=== PATIENT | female | born 1985 | race African-American/Black ===

== ENCOUNTER → 2019-10-31 15:37 | Outpatient (CLI) | payer OTHER, SELFPAY ==
--- NOTE | ~2019-10-31 | US_ITS ---
EXAMINATION: US OB transvaginal DATE: 10/31/2019 16:05 INDICATION: Gestational dating TECHNIQUE: Real-time transabdominal and transvaginal obstetric ultrasound. FINDINGS: No prior studies for comparison. The uterus measures 11.6 x 5.7 x 6.9 cm. There is an intrauterine gestational sac, with pole id entified. The crown rump length measures 0.76 cm, which correlates with a estimated gestational age of 6 weeks 5 days. heart tones are identified measuring 136 BPM. There is a uterine fibroid p osterior aspect of the fundus measuring 3.6 x 3.5 x 3.6 cm. The left ovary contains a 2 cm corpus lut eal cyst. Right ovary within normal limits. No free fluid in the pelvis. IMPRESSION: 1. SL IUP with an EGA of 6 weeks, 5 days (EDC by current ultrasound of 06/20/2020). 2: 3.6 cm uterine fibroid in the fundus. Reviewed, dictated and finalized at location A. IMPRESSION: 1. SL IUP with an EGA of 6 weeks, 5 days (EDC by current ultrasound of ). 2: 3.6 cm uterine fibroid in the fundus.
== END ==
PROVIDERS: Visit Provider Obstetrics & Gynecology
DX: O34.11 Maternal care for benign tumor of corpus uteri, first trimester (principal); Z3A.01 Less than 8 weeks gestation of pregnancy
CPT/HCPCS: 76817

== ENCOUNTER 2020-06-05 09:10 | Outpatient (RCR) | payer OTHER, MEDICAID, SELFPAY ==
[2020-04-28 09:55] VITALS: BP 109/65; PULSE 95
[2020-05-01 08:06] VITALS: BP 98/64
[2020-05-05 09:17] VITALS: BP 106/55; PULSE 85
[2020-05-08 08:16] VITALS: BP 118/59; PULSE 79
[2020-05-12 08:15] VITALS: BP 116/63; PULSE 92
[2020-05-15 08:26] VITALS: BP 116/72; PULSE 89
[2020-05-19 08:48] VITALS: BP 117/67; PULSE 82
[2020-05-22 11:40] VITALS: BP 119/59; PULSE 91
[2020-05-26 09:49] VITALS: BP 114/84; PULSE 91
[2020-06-02 11:08] VITALS: BP 126/69; PULSE 87
--- NOTE | ~2020-06-05 | US_ITS ---
EXAMINATION: US OB limited w BPP DATE: 06/02/2020 10:53 INDICATION: Variable decelerations, third trimester TECHNIQUE: Real-time pelvic ultrasound was performed. The interpreting radiologist was not present fo r the study. COMPARISON: 05/26/2020 FINDINGS: There is a single living fetus in vertex presentation. The placenta is fundal. heart rate is 14 4 beats per minute (bpm). The amniotic fluid index is 15 cm which is normal. Biophysical profile performed by the technologist: breathing (30 sec sustained breathing in 30 minutes): 2 out of 2 movement (3 gross body movements in 30 minutes): 2 out of 2 tone (one episode of ndxukux-dzmiosyfd-ssfuzbo limb movement): 2 out of 2 Amniotic fluid pocket (2 cm): 2 out of 2 Total score: 8 out of 8 IMPRESSION: 1. Single living fetus in vertex presentation. 2. Biophysical profile 8 out of 8. 3. Normal amniotic fluid index. Reviewed, dictated and finalized at location A. HICS EDIT TECHNICIAN
--- NOTE | ~2020-06-05 | US_ITS ---
EXAMINATION: US OB limited w BPP DATE: 05/26/2020 10:10 INDICATION: Variable decelerations. Third trimester. TECHNIQUE: Real-time pelvic ultrasound was performed. COMPARISON: Ultrasound 05/22/2020 FINDINGS: There is a single living fetus in vertex presentation. The placenta is fundal. heart rate is 1 39 beats per minute (bpm). The amniotic fluid index is 21.0 cm, which is normal. Biophysical profile performed by the technologist: breathing (30 sec sustained breathing in 30 minutes): 2 out of 2 movement (3 gross body movements in 30 minutes): 2 out of 2 tone (one episode of nxevruu-bnutxmies-ogumbak limb movement): 2 out of 2 Amniotic fluid pocket (2 cm): 2 out of 2 Total score: 8 out of 8 IMPRESSION: 1. Single living fetus in vertex presentation. 2. Biophysical profile 8 out of 8. Reviewed, dictated and finalized at location A. T SECURITY OFFICER
--- NOTE | ~2020-06-05 | US_ITS ---
EXAMINATION: US OB limited w BPP DATE: 05/22/2020 11:32 INDICATION: Decelerations. Gestational diabetes. Third trimester. TECHNIQUE: Real-time pelvic ultrasound was performed. COMPARISON: Ultrasound 05/05/2020 FINDINGS: There is a single living fetus in vertex presentation. The placenta is posterior and fundal. h eart rate is 168 beats per minute (bpm). The amniotic fluid index is 18.0 cm, which is normal. Biophysical profile performed by the technologist: breathing (30 sec sustained breathing in 30 minutes): 2 out of 2 movement (3 gross body movements in 30 minutes): 2 out of 2 tone (one episode of zelcxgt-luyzjwzmd-zztkxhn limb movement): 2 out of 2 Amniotic fluid pocket (2 cm): 2 out of 2 Total score: 8 out of 8 IMPRESSION: 1. Single living fetus in vertex presentation. 2. Biophysical profile 8 out of 8. Reviewed, dictated and finalized at location A. ECT SYSTEMS ENGINEER
--- NOTE | ~2020-06-05 | US_ITS ---
EXAMINATION: US OB limited w BPP DATE: 04/28/2020 09:46 EXECUTIVE DIRECTOR [employer] INDICATION: decelerations. Gestational diabetes. TECHNIQUE: Real-time transabdominal obstetric ultrasound. FINDINGS: Comparison ultrasound dated 10/31/2019 There is a single living fetus in vertex presentation. The placenta is fundal/posterior without plac enta previa. JONG is normal measuring 15.2 cm (normal range for gestational age is 8.6-24.2 cm). cardiac activity and movement is noted with a heart rate of 152 beats per minute. Biophysical profile: breathin of 2 movement: 2 of 2 tone: 2 of 2 Amniotic flud pocket: 2 of 2 Total score: 8 of 8 There is a uterine fibroid anteriorly measuring 3.4 x 3.3 x 2.4 cm. IMPRESSION: 1. Single living intrauterine in vertex presentation. 2: Total biophysical profile score of 8/8. 3: Normal JONG measures 15.2 cm. Reviewed, dictated and finalized at location A. UTIVE DIRECTOR [employer] MARKETING
--- NOTE | ~2020-06-05 | US_ITS ---
EXAMINATION: US OB limited w BPP DATE: 05/05/2020 09:06 INDICATION: Gestational diabetes, third trimester TECHNIQUE: Real-time pelvic ultrasound was performed. The interpreting radiologist was not present fo r the study. COMPARISON: 04/28/2020 FINDINGS: There is a single living fetus in vertex presentation. The placenta is fundal. heart rate is 15 7 beats per minute (bpm). The amniotic fluid index is 17.0 cm which is normal. Intramural fibroids ar e noted in the uterine body which measure up to 3.6 cm Biophysical profile performed by the technologist: breathing (30 sec sustained breathing in 30 minutes): 2 out of 2 movement (3 gross body movements in 30 minutes): 2 out of 2 tone (one episode of tgepoaq-xwbjnemqs-qusdvlh limb movement): 2 out of 2 Amniotic fluid pocket (2 cm): 2 out of 2 Total score: 8 out of 8 IMPRESSION: 1. Single living fetus in vertex presentation. 2. Biophysical profile 8 out of 8. 3. Normal amniotic fluid index. Reviewed, dictated and finalized at location A. GER OF REVENUE
[2020-06-05 09:36] VITALS: BP 126/77; PULSE 81
== END 2020-06-15 07:39 | disposition home or self-care (01) ==
LOC: ANHOBOP 09:10
PROVIDERS: PCP Family Medicine; Visit Provider Obstetrics & Gynecology
DX: O24.419 Gestational diabetes mellitus in pregnancy, unspecified control (principal); Z3A.32 32 weeks gestation of pregnancy; Z3A.33 33 weeks gestation of pregnancy; Z3A.34 34 weeks gestation of pregnancy; Z3A.35 35 weeks gestation of pregnancy; Z3A.36 36 weeks gestation of pregnancy; Z3A.37 37 weeks gestation of pregnancy
CPT/HCPCS: 59025; 76815; 76819

== ENCOUNTER 2020-06-13 06:12 | Inpatient (IN) | payer MEDICAID, SELFPAY ==
[2020-06-13] VITALS (110 sets, daily range): BP systolic 105–200; BP diastolic 47–132; PULSE 59–106; RESP 18; TEMP 36.2–37.3; O2SAT 96–100; BMI 36.6
[2020-06-13 06:48] LABS: Glucose Point of Care 150 (65-105)
[2020-06-13 07:00] LABS: Basophils Percent Auto 0.2 % (0.2-1.2); Eosinophils Percent Auto 0.6 % (0-4.4); Hematocrit 30.8 % (37.0-47.0); Immature Granulocyte Absolute 0.03 K/mm3 (0.00-0.031); Immature Granulocyte Percent A 0.5 % (0-0.5); Lymphocytes Absolute Auto 2.38 K/mm3 (0.9-3.2); Lymphocytes Percent Auto 38.1 % (18.3-44.2); Mean Corpuscular HGB Conc 32.5 g/dl (32-36); Mean Corpuscular Hemoglobin 28.3 pg (26-34); Mean Corpuscular Volume 87.3 fl (80-100); Mean Platelet Volume 10.7 fl (7.4-10.4); Monocytes Absolute Auto 0.4 K/mm3 (0.1-0.6); Monocytes Percent Auto 6.4 % (2.6-8.5); Neutrophils Absolute Auto 3.4 K/mm3 (1.3-6.7); Neutrophils Percent Auto 54.2 % (45.5-73.1); Platelet Count Result 225 k/mm3 (150-375); Red Blood Count 3.53 M/mm3 (4.2-5.4); Red Cell Distribution Width 14.4 % (11.5-14.5); White Blood Count 6.2 K/mm3 (4.5-10.0)
[2020-06-13] MEDS: LACTATED RINGERS 1,000 ML 125 ML IV CONT ×3 (07:04→11:32)
--- NOTE | 2020-06-13 07:10 | LDADM ---
This patient, Guilherme Nice, was admitted to Labor/Delivery/Recovery 106 on 06/13/20 at 06:12. Plans for labor, pain management and were discussed with patient. Patient/family oriented to hospital policies and general routines including ID bracelet, bed and alarms, visiting hours, pain management, procedures, bathroom and other care routines, personal items, smoking policy, room service/diet and guest tray routines, infant security routines, and visiting hours. Patient/Family are encouraged to report perceived risks to care and to ask questions if they do not understand what they are told or what they should do. See OBIX for further documentation.
[2020-06-13] MEDS: OXYTOCIN 30 UNITS/NS 500 ML 30 UNITS/500 ML BAG IV CONT (07:50)
--- NOTE | 2020-06-13 09:15 | WPDANESEPP ---
Anes - Eval Pre Procedure Procedure: labor epidural Date/Time: 06/13/20 09:15 Preop Diagnosis: labor pain Pre Op Diagnosis: Induction of Labor Patient Data Age: 34 Gender: F Height: 5 ft Weight: 85 kg Last Vital Signs Temp 36.5 C 06/13/20 07:00 Pulse 64 06/13/20 09:01 BP 136/77 06/13/20 09:01 Allergies Allergy/AdvReac Type Severity Reaction Status Date / Time No Known Allergies Allergy Verified 05/20/20 12:28 Home Medications Medication Instructions Recorded Confirmed Type PNV cmb#95-ferrous fumarate-FA 1 tablet PO DAILY 05/20/20 06/13/20 History [] ergocalciferol (vitamin D2) 50,000 unit PO 2XW 06/02/20 06/13/20 History insulin NPH isoph U-100 human 8 unit SUBCUT HS 06/02/20 06/13/20 History [Novolin N NPH U-100 Insulin] Laboratory Tests 06/13/20 06/13/20 06/13/20 06:42 06:51 06:51 WBC 6.2 K/mm3 K/mm3 (4.5-10.0) RBC 3.53 M/mm3 L M/mm3 (4.2-5.4) Hgb 10.0 g/dL L g/dL (12.0-15.0) Hct 30.8 % L % (37.0-47.0) MCV 87.3 fl fl (80-100) MCH 28.3 pg pg (26-34) MCHC 32.5 g/dl g/dl (32-36) RDW 14.4 % % (11.5-14.5) Plt Count 225 k/mm3 k/mm3 (150-375) MPV 10.7 fl H fl (7.4-10.4) Immature Gran % (Auto) 0.5 % % (0-0.5) Neut % (Auto) 54.2 % % (45.5-73.1) Lymph % (Auto) 38.1 % % (18.3-44.2) Sheridan % (Auto) 6.4 % % (2.6-8.5) Eos % (Auto) 0.6 % % (0-4.4) Baso % (Auto) 0.2 % % (0.2-1.2) Lymph # (Auto) 2.38 K/mm3 K/mm3 (0.9-3.2) Sheridan # (Auto) 0.4 K/mm3 K/mm3 (0.1-0.6) Eos # (Auto) 0.0 K/mm3 K/mm3 (0-0.3) Baso # (Auto) 0.0 K/mm3 K/mm3 (0.0-0.1) Abs Immat Gran (auto) 0.03 K/mm3 K/mm3 (0.00-0.031) Absolute Neuts (auto) 3.4 K/mm3 K/mm3 (1.3-6.7) Absolute Nucleated RBC 0.0 K/mm3 K/mm3 (0.0-0.012) Nucleated RBC % 0.0 % % (0.0-0.2) POC Capillary Glucose 150 mg/dl H mg/dl (65-105) RPR Pending Blood Type Antibody Screen 06/13/20 06:51 WBC RBC Hgb Hct MCV MCH MCHC RDW Plt Count MPV Immature Gran % (Auto) Neut % (Auto) Lymph % (Auto) Sheridan % (Auto) Eos % (Auto) Baso % (Auto) Lymph # (Auto) Sheridan # (Auto) Eos # (Auto) Baso # (Auto) Abs Immat Gran (auto) Absolute Neuts (auto) Absolute Nucleated RBC Nucleated RBC % POC Capillary Glucose RPR Blood Type O Positive Antibody Screen Negative Patient hx anesthesia problems: none Family hx anesthesia problems: none PMFSH Family History Family History Other No pertinent family history Social History Social History Smoking status: Never smoker Substance use: never Gender identity (if verbalized by the patient): Female Spiritual care concerns: No Exam Day of Procedure 06/13/20 09:15
--- NOTE | 2020-06-13 11:03 | WPDOBADMIT ---
Obstetrics - Admit Note Admission Note: AROM clear fluid /-2 vertex record reviewed. No pertinent additions to the history and/or any subsequent changes in the physical findings that are not consistent with the expected course of the were found. Additions to the history and/or subsequent changes in the physical findings follow. None.
[2020-06-13 11:13] LABS: Glucose Point of Care 85 (65-105)
[2020-06-13 13:46] LABS: Glucose Point of Care 78 (65-105)
[2020-06-13] MEDS: ONDANSETRON INJ 4 MG/2 ML VIAL IV PUSH (14:12)
[2020-06-13] MEDS: OXYTOCIN 30 UNITS/NS 500 ML 30 UNITS/500 ML BAG 125 UNITS IV CONT (15:58)
--- NOTE | 2020-06-13 16:03 | PM.OBPRVD ---
OB - Delivery Note Procedure Delivery date: 06/13/20 Procedure: events: Labor Induction Intrapartal events: Diabetes Induction method: AROM and per pitocin protocol Delivery monitor: external FHT, external uterine and internal FHT Route of delivery: Laceration Description: Perineal - 2nd Degree Delivery repair: vicryl Specimen: No Quantitative Blood Loss (ml): 130 Anesthesia type: Epidural Disposition: floor Baby Time of : 15:39 Weeks of gestation at delivery: 39 Infant gender: Male Weight (pounds): 8 Weight (ounces): 0 presentation: vertex position: Left Occiput Anterior Placenta delivery description: Spontaneous cord vessel description: 3 Vessels, Nuchal Cord, Loose and Clamped/Cut score one minute: 5 score five minutes: 8 Narrative: Shoulder dystocia x 1 minute. Leapolds with corkscrew manuever. fetus head and shoulders delivered with remainder for fetus delivered with gentle traction.
[2020-06-13] MEDS: WITCH HAZEL 40 PADS 1 PAD TOPICAL (18:13)
[2020-06-14 03:25] LABS: Hematocrit 28.5 % (37.0-47.0); Hemoglobin 9.2 g/dL (12.0-15.0)
[2020-06-14 04:00] VITALS: BP 114/60; PULSE 66; RESP 18; TEMP 36.6; O2SAT 98
--- NOTE | 2020-06-14 04:19 | PC.NURSE ---
Patient transferred to post room #284 via wheelchair. Support person present. Oriented to unit, room, information board, rooming in, admission packet and security measures. Patient verbalizes understanding.
[2020-06-14] MEDS: DOCUSATE SODIUM 100 MG CAPSULE PO ×2 (07:52→16:50)
[2020-06-14] MEDS: POLYSACCHARIDE IRON COMPLEX 150 MG CAPSULE PO ×2 (07:52→16:50)
[2020-06-14] MEDS: MULTIVIT/MIN/PREN/FOL AC/IRON TABLET 1 TAB PO (07:52)
[2020-06-14] MEDS: IBUPROFEN 600 MG TABLET PO ×2 (07:52→16:50)
[2020-06-14] MEDS: WITCH HAZEL 40 PADS 1 PAD TOPICAL (07:55)
[2020-06-14 08:00] VITALS: BP 119/71; PULSE 83; RESP 16; TEMP 37.1; O2SAT 98
--- NOTE | 2020-06-14 10:12 | PM.OBPNVD ---
OB - PN: Subj Subjective Date/time seen: 06/14/20 10:12 doing well desires home. minimal bleeding and cramping OB - PN: Obj Data Labs CBC & Chem 7: 06/14/20 03:14 Labs: Laboratory Results - last 24 hr 06/13/20 06/13/20 06/14/20 11:10 13:44 03:14 Hgb 9.2 L Hct 28.5 L POC Capillary Glucose 85 78 OB - PN A/P Assessment and Plan (1) (normal spontaneous vaginal delivery): Code(s): O80 - Encounter for full-term uncomplicated delivery Status: Acute Assessment and Plan: continue with pp care. Time Spent With Patient Time: Total time spent is greater than 50% in coordination of care (as documented) at patient's floor/unit and/or counseling patient: Exam GI: Other: ff below umbilicus
--- NOTE | 2020-06-14 11:06 | WPDANLDPN2 ---
Anes-Prog Note L&D Date/Time: 06/14/20 11:06 Comfortable throughout: labor and delivery Neuraxial method: epidural Epidural/Spinal procedure site: clean & non-tender Neuro status: Neuro function grossly intact. Cardiovascular status: normal Respiratory status: normal Airway patency: baseline Mental status: baseline Post-Op hydration status: normal Vital Signs: Last Vital Signs Temp 37.1 C 06/14/20 08:00 Pulse 83 06/14/20 08:00 Resp 16 06/14/20 08:00 BP 119/71 06/14/20 08:00 Pulse Ox 98 06/14/20 08:00 Pain score (VAS): 3 I/O: Intake & Output 06/13/20 06/14/20 06/14/20 23:59 07:59 15:59 Intake Total 1000 Balance 1000 Post-procedural complaints: none Patient feedback: Patient satisfied with anesthetic care.
[2020-06-14 12:00] VITALS: BP 103/60; PULSE 74; RESP 18; TEMP 36.9; O2SAT 98
[2020-06-14] MEDS: LANOLIN (LANSINOH) 7.5 GM CREAM 1 APPLIC TOPICAL (16:51)
[2020-06-14 20:00] VITALS: BP 102/62; PULSE 69; RESP 17; TEMP 36.9
--- NOTE | 2020-06-15 07:30 | PC.NURSE ---
PT introductions made and plan of care discussed per post , pain management, breast feeding, daily care activities and pending discharge to home. PT verbalized understanding of such care.
[2020-06-15] MEDS: MULTIVIT/MIN/PREN/FOL AC/IRON TABLET 1 TAB PO (08:21)
[2020-06-15] MEDS: POLYSACCHARIDE IRON COMPLEX 150 MG CAPSULE PO (08:21)
[2020-06-15] MEDS: DOCUSATE SODIUM 100 MG CAPSULE PO (08:21)
[2020-06-15] MEDS: IBUPROFEN 600 MG TABLET PO (08:22)
[2020-06-15] MEDS: LANOLIN (LANSINOH) 7.5 GM CREAM 1 APPLIC TOPICAL (08:24)
--- NOTE | 2020-06-15 08:30 | PM.OBPNVD ---
OB - PN: Subj Subjective Date/time seen: 06/15/20 08:30 Patient comments: no complaints and pain well controlled baby status: doing well OB - PN: Obj Data Labs CBC & Chem 7: 06/14/20 03:14 OB - PN A/P Plan day: 2 Plan: routine care, discharge home and other (unsure control plans) Time Spent With Patient Time: Total time spent is greater than 50% in coordination of care (as documented) at patient's floor/unit and/or counseling patient: Exam : Bimanual exam- vagina & uterus: other (Uterus firm, nt @U)
[2020-06-15 09:00] VITALS: BP 120/68; PULSE 75; RESP 18; TEMP 36.5; O2SAT 98
[2020-06-15 11:00] LABS: Rapid Plasma Reagin Non-Reactive (NonReactive)
--- NOTE | 2020-06-15 13:00 | PC.NURSE ---
PT received discharge instructions per protocol using verbal discussion and mom baby care guide book. PT verbalized understanding of such instructions.
--- NOTE | 2020-06-15 13:35 | PC.NURSE ---
PT discharged to home via ambulatory accompanied by fob and and taken to waiting car. follow up appts confirmed
[2020-06-16 09:47] VITALS: BP 134/71; PULSE 76; RESP 16; TEMP 36.8; O2SAT 98
--- NOTE | 2020-06-27 09:42 | PM.OBDSVD ---
DS: Admitting Diagnosis Admitting Diagnosis Admitting Diagnosis: induction of labor DS: Discharge Diagnosis Discharge Diagnosis (1) (normal spontaneous vaginal delivery): Code(s): O80 - Encounter for full-term uncomplicated delivery Status: Acute OB - DS: Summary OB Procedures : NST OB Procedures Intrapartum: Spontaneous Vag Delivery OB Procedures: : None Peripartum Data Delivery Method: Natural Vaginal Laceration Description: Perineal - 2nd Degree Time Spent with Patient Time attestation: Total time spent providing and/or coordinating discharge services: DS: Data Data Completed and Pending Completed studies during hospitalization: Pending at discharge 06/13/20 15:44 Surgical [PTH] Routine Discharge Plan Discharge Attending physician on discharge: Lisandro Bashir Discharging Clinician: Lisandro Bashir Patient Disposition: Home, Self-Care Activity: may shower Diet: regular Discharge Instructions: Education: Mom and Baby Guide Given to: Mother Follow-Up: Call your delivering provider's office for an appointment to be seen in: 4 Weeks Mom and baby should come to the [facility] for the follow-up appointment. Appointment Date/Time: June 16, 2020 at 10:00 am What to expect at your follow-up visit: Blood Pressure Check Call [phone] if you are unable to keep your appointment time. BREAST CARE: * Wear a snug supportive bra. * For engorgement discomfort: Breast Feeding: * Apply warm moist washcloths * Express milk as needed to relieve engorgement * Wear loose clothing Bottle Feeding: * May apply ice packs * For sore nipples: * Identify correct latch-on * Apply warm moist washcloths before and after nursing * Air dry nipples after nursing * May apply Lansinoh cream to nipples PERINEAL CARE: * Until bleeding stops, use your sergo bottle after urinating * Change your pad frequently throughout the day * You may take sitz baths several times a day (fill your bathtub with warm water and soak for 20 minutes.) Do NOT bathe in the water * No tub baths until seen by your physician - You may shower ACTIVITY: * Rest as much as possible. * Do not exercise or lift anything heavier than your baby (such as laundry or other children.) * Avoid stairs or driving as much as possible. * Do not put anything into the vagina. No douching, tampons, or sexual activity until seen by physician. NOTIFY PHYSICIAN IF YOU HAVE ANY QUESTIONS OR IF ANY OF THE FOLLOWING SYMPTOMS OCCUR: * If your perineum becomes red, swollen, or more painful than what you have experienced in the hospital. * If your vaginal bleeding becomes foul smelling. * If your vaginal bleeding becomes more heavy than a period or if your bleeding changes from pink to bright red. However, you may pass an occasional walnut-sized clot once or twice for the first week . * If you experience a sharp, shooting pain in you calves. * If you discover a hard, reddened area on your breast or if you experience flu-like symptoms. * If you have a fever of 100.4 or greater DIET: * Eat regular, well-balanced meals. * Drink plenty of fluids daily. If , drink to thirst. Patient Instructions: Antibiotic Form Stand Alone Forms: General Discharge Information Follow-up/Referrals: Lisandro Bashir MD [Physician] - Discharge Medications: Continued ergocalciferol (vitamin D2) 1,250 mcg (50,000 unit) capsule 50,000 unit PO 2XW RF: 0 PNV cmb#95-ferrous fumarate-FA [] 28 mg iron- 800 mcg Tablet 1 tablet PO DAILY RF: 0 Discontinued Novolin N NPH U-100 Insulin 100 unit/mL suspension 8 unit SUBCUT HS RF: 0 Date of admission: 06/13/20 06:12 Primary Care Provider: Mauricio,Santos Quispe Admitting Provider: Lisandro Bashir Attending physician on ad
== END 2020-06-15 13:35 | disposition home or self-care (01) | DRG 807 ==
LOC: ANHLDR 16:01 → ANHOB2 06-15 06:59 → ANHLDR 06-15 19:58 → ANHOB2 06-15 19:58
PROVIDERS: Admitting Provider Obstetrics & Gynecology; PCP Family Medicine; Visit Provider Obstetrics & Gynecology Gynecology
DX: O24.429 Gestational diabetes mellitus in childbirth, unspecified control (principal); Z37.0 Single live birth; O76 Abnormality in fetal heart rate and rhythm complicating labor and delivery; O66.0 Obstructed labor due to shoulder dystocia; O70.1 Second degree perineal laceration during delivery; O69.81X0 Labor and delivery complicated by cord around neck, without compression, not applicable or unspecified; Z3A.39 39 weeks gestation of pregnancy
CPT/HCPCS: 36415; 82948; 85014; 85018; 85025; 86592; 86850; 86900; 86901; 88307; A9270; J2405; J2590; J2795; J7120